=== PATIENT | female | born 1975 | race Caucasian/White ===

== ENCOUNTER → 2020-03-10 10:39 | Outpatient (CLI) | payer OTHER, SELFPAY ==
--- NOTE | ~2020-03-10 | US_ITS ---
EXAMINATION: US thyroid DATE: 03/10/2020 10:56 INDICATION: Nontoxic single thyroid nodule. Left neck lump. TECHNIQUE: Multiple ultrasound images of the thyroid were obtained. COMPARISON: None. FINDINGS: The right thyroid lobe measures 5.4 x 1.3 x 1.3 cm. The left thyroid lobe measures 5.3 x 0.9 x 1.6 c m. There is normal echotexture and echogenicity throughout the thyroid gland. No discrete nodules id entified. Normal vascular flow is present. There is no abnormal mass or lymphadenopathy in the patien t's area of concern in the left neck. IMPRESSION: 1. Normal thyroid. Reviewed, dictated and finalized at location B. IMPRESSION: 1. Normal thyroid.
== END ==
DX: E04.1 Nontoxic single thyroid nodule (principal)
CPT/HCPCS: 76536

== ENCOUNTER → 2020-07-14 10:29 | Outpatient (CLI) | payer OTHER, SELFPAY ==
--- NOTE | ~2020-07-14 | MM_ITS ---
EXAMINATION: MM scrn jevon implant BI w mar HISTORY: Screening mammogram TECHNIQUE: Craniocaudal and mediolateral oblique 3-D tomosynthesis images with implant displacement a nd synthetic 2-D images were generated. Craniocaudal and mediolateral oblique views of the breasts wi thout implant displacement were obtained using full field digital mammography. CAD analysis was submi tted and interpreted. COMPARISON: Comparison to multiple prior studies sequentially, with oldest reviewed study dated 04/17. BREAST PARENCHYMAL COMPOSITION: The breasts are extremely dense, which lowers the sensitivity of mamm ography. FINDINGS: Stable benign-appearing low-density left breast mass, lower outer quadrant of the left [address] unchanged dating back to 08/28/2017. There is no evidence of suspicious mass, calcification, or arc hitectural distortion to suggest malignancy in either breast. There has been no suspicious interval c hange. IMPRESSION: 1. No mammographic evidence of malignancy. 2. Recommend routine screening mammography in one year. BI-RADS Category 2: Benign finding(s). Reviewed, dictated and finalized at location A. FENCE [employer]OR
== END ==
PROVIDERS: Visit Provider Obstetrics & Gynecology Gynecology
DX: Z12.31 Encounter for screening mammogram for malignant neoplasm of breast (principal)
CPT/HCPCS: 77063; 77067

== ENCOUNTER → 2021-10-26 13:49 | Outpatient (CLI) | payer OTHER, SELFPAY ==
--- NOTE | ~2021-10-26 | US_ITS ---
EXAMINATION: US pelvic complete w TV DATE: 10/26/2021 14:28 INDICATION: Pelvic pain and shooting LLQ pain. TECHNIQUE: Multiple transabdominal and endovaginal sonographic images of the pelvis were obtained. COMPARISON: 05/27/16 FINDINGS: Uterus: 6.0 x 2.8 x 3.3 cm. 1 cm fibroid in anterior uterine body. Endometrial complex measures 0.4 c m. Right Ovary: 1.5 x 1.1 x 1.4 cm. Vascular flow is present. Left Ovary: 2.0 x 1.5 x 1.7 cm. Vascular flow is present. There is no free fluid in the pelvis. Increase vascularity in bilateral adnexa. IMPRESSION: 1. 1 cm fibroid. 2. Increased adnexal vascularity as can be seen with pelvic congestion syndrome. Correlate clinically for persistent dull pelvic pain lasting > 6 months, dysmenorrhea, dyspareunia, postcoital ache, and urinary symptoms. Reviewed, dictated and finalized at location K. IMPRESSION: 1. 1 cm fibroid. 2. Increased adnexal vascularity as can be seen with pelvic congestion syndrome . Correlate clinically for persistent dull pelvic pain lasting > 6 months, dysm enorrhea, dyspareunia, postcoital ache, and urinary symptoms.
--- NOTE | ~2021-10-26 | US_ITS ---
US breast BI complete DATE: 10/26/2021 14:48 INDICATION: Hair loss, fatigue, toxic symptoms; concern for possible silicone leakage from breast imp lants. No family history of breast cancer. Patient states the referring physician did not want mammogram performed due to possible damage to imp lants. TECHNIQUE: Real-time imaging of both breasts including all 4 quadrants and subareolar area COMPARISON: 07/14/2020 bilateral implant screening mammogram 02/26/2018 limited left breast ultrasound examination FINDINGS: Bilateral breast implants are noted. Right breast: There is a 2.6 x 7.9 x 4.3 mm cyst adjacent to the implant deep to the nipple. No suspicious mass or shadowing is detected. Left breast: At 1:00 7 cm from the nipple there is an approximately 2 x 6 mm lymph node with fatty hilus, with hil ar vessel. There are scattered circumscribed parallel sonolucent largely sonolucent lesions, including at 12:00 4 cm from nipple, 12:00 3 cm from nipple, 12:00 2 cm from nipple, 1:00 2 cm from nipple, 2:00 8 cm fr om nipple, 4:00 6 cm from nipple, 6:00 3.5 cm from nipple, 9:00 4 cm from the nipple. The largest of these is the 12:00 2 cm from nipple lesion which measures up to 4 x 11 mm, with through transmission posterior enhancement. No suspicious mass or shadowing is detected. IMPRESSION: BI-RADS Category 2: Benign Reviewed, dictated and finalized at Location A. Reviewed, dictated and finalized at location A. IMPRESSION: BI-RADS Category 2: Benign
== END ==
PROVIDERS: Visit Provider Nurse Practitioner
DX: Z12.31 Encounter for screening mammogram for malignant neoplasm of breast (principal); D25.9 Leiomyoma of uterus, unspecified
CPT/HCPCS: 76641; 76830; 76856

== ENCOUNTER → 2022-12-28 13:56 | Outpatient (CLI) | payer OTHER, SELFPAY ==
--- NOTE | ~2022-12-28 | US_ITS ---
EXAMINATION: US transvaginal DATE: 12/29/2022 10:39 INDICATION: Post menopausal bleeding TECHNIQUE: Multiple transabdominal and endovaginal sonographic images of the pelvis were obtained. COMPARISON: 10/26/2021 FINDINGS: Uterus: 6.4 x 3.1 x 4.3 cm. Endometrial complex measures 8 mm. Right Ovary: Right ovary not visualized. No adnexal mass. Dilated right adnexal vessels. Left Ovary: Left ovary not visualized no adnexal mass. Dilated left adnexal vessels. There is no free fluid in the pelvis. IMPRESSION: Endometrial thickening, consider endometrial sampling. Ovaries not visualized. Dilated bilateral adne xal vessels, consistent with the history of pelvic congestion. Reviewed, dictated and finalized at location K. IMPRESSION: Endometrial thickening, consider endometrial sampling. Ovaries not visualized. Dilated bilateral adnexal vessels, consistent with the history of pelvic conges tion.
== END ==
PROVIDERS: PCP Obstetrics & Gynecology Gynecology; Visit Provider Obstetrics & Gynecology Gynecology
DX: N95.0 Postmenopausal bleeding (principal)
CPT/HCPCS: 76830

== ENCOUNTER 2023-01-23 01:59 | Day surgery (SDC) | payer OTHER, SELFPAY ==
[2023-01-18 10:15] VITALS: BMI 20.7
--- NOTE | 2023-01-18 10:21 | PC.NURSE ---
Report to the Outpatient Waiting Room, entrance under the green pavilion located off [facility], at time 1115 on date 01/23/23. Planned Procedure Time: 1315. Time changes happen often and if your time is changed the preop area will call you the afternoon before. - You and your visitor will be asked to self-screen and do not enter if you have any COVID symptoms. - A mask is optional within the hospital at this time. Patients may have clear liquids (water, carbonated beverages, clear teas, apple juice) until 3 hours prior to surgery with a maximum of 20 ounces. - No food from midnight until time of surgery Take the following medications with a SIP of water the morning of surgery: NONE DO NOT STOP ANY OF YOUR OTHER PRESCRIPTION MEDICATIONS PRIOR TO SURGERY ?EXCEPT THE FOLLOWING Medications to discontinue per physician: N/A Date to take last dose: N/A Please no make-up, nail yakut, hairspray, perfume, deodorant, or body powder the day of surgery. No jewelry (including any body piercings) or valuables the day of surgery, leave them at home. Please take a shower or bath the night before, or the morning of, surgery with an antibacterial soap. Wear comfortable, loose fitting clothing. - Jewelry must be removed prior to entering the operating room. Rings and piercings that are not removed may be cut off. - The hospital will not accept responsibility for valuables. - Please leave all valuables, including medications, at home the day of surgery. If you are going home after surgery, a licensed regional truck driver must drive you home. - NO public transportation without another adult if you receive anesthesia. - We recommend that an adult stay with you for 24 hours following discharge. - We also recommend that you do not drive, make important decision, drink alcoholic beverages, or take any drugs that were not prescribed by your health care provider for at least 24 hours after your discharge time. Follow any additional instructions given to you from your surgeon. If you or anyone in your household have experienced Covid symptoms in the past week, please notify your surgeon or the nurse liaison at the phone number below for possible testing. Telephone instructions given to PT - EJ GARCIA and asked if any additional questions and then verbalized understanding. Patient advised to call surgeon office or pre surgery nurse liaison [phone] if any additional questions.
--- NOTE | 2023-01-23 10:45 | WPDHPUPDATE1 ---
History and Physical Update Update Date/Time: 01/23/23 10:45 History and Physical has been reviewed, including an updated exam of the patient. There are NO changes in the patient's condition. Risks, benefits, and alternatives have been discussed and questions answered. Patient agrees to proceed with procedure.
--- NOTE | 2023-01-23 10:45 | PM.HPGS ---
History of Present Illness History of Present Illness Consent: Risks, benefits, and alternatives have been discussed and questions answered. Patient agrees to proceed with procedure. Chief complaint: post menopausal bleeding Narrative: Faby Olivares is a 47 year old female who is 18 months postmenopausal with a 5 day bleeding episode. The patient has been seeing a functional DrWill and taking Simplex F for hormone balance and pelvic congestion . It was recommended to proceed with D&C hysteroscopy to further evaluate the endometrium. Risks of infection, bleeding, perforation, and possible pathology are discussed. Patient voices understanding and agrees to proceed. Review of Systems Review of Systems: not repeated day of surgery; patient states no changes in status [facility] Past Medical History Medical History (Updated 01/23/23 @ 10:50 by Padmini Pandey MD) Pelvic congestion syndrome Ulcerative colitis Surgical History Surgical History (Updated 01/23/23 @ 10:50 by Padmini Pandey MD) H/O breast implant with scar revision History of bilateral tubal ligation History of x2 History of hysteroscopy removal of IUD 2014 History of umbilical hernia repair Social History Social History Smoking packs per day: 0.5 Smoking cigarettes per day: 10.0 Years smoked: 20 Smoking pack-years: 10.00 Smoking status: Former smoker Tobacco type: cigarettes Smoking end date: 07/17/13 Alcohol intake: never Substance use: never Substance use type: does not use Living arrangements: with family Spiritual care concerns: No Meds Home Medications and Allergies Home Medications Medication Instructions Recorded Confirmed Type upadacitinib 15 mg tablet,extended 15 mg PO HS 01/18/23 01/18/23 History release 24 hr (Rinvoq) Allergies Allergy/AdvReac Type Severity Reaction Status Date / Time codeine Allergy Unknown vomiting Verified 01/18/23 10:15 Exam Const: General: healthy appearing and alert Orientation/consciousness: patient oriented x3 Resp: Effort & Inspection: normal respiratory effort GI: GI Palp: Yes Soft to palpation, No Tenderness to palpation present (GI) and No Palpable mass present : External Female Exam: normal external appearance Speculum Exam - Vagina: normal appearance of the vagina and normal vaginal discharge Speculum Exam - Cervix: normal appearance of the cervix Bimanual exam- vagina & uterus: uterine size normal and consistency normal Bimanual Exam- Adnexa, other: normal adnexae and No adnexal tenderness Neuro: General: patient oriented x3 Assessment and Plan Assessment and plan (1) Post-menopausal bleeding: Code(s): N95.0 - Postmenopausal bleeding Status: Acute Assessment and Plan: plan to proceed with D&C hysteroscopy
[2023-01-23] MEDS: LACTATED RINGERS 1,000 ML 30 ML IV CONT (12:00)
[2023-01-23] MEDS: ACETAMINOPHEN 500 MG TABLET 1000 MG PO (12:00)
[2023-01-23 12:03] VITALS: BP 105/82; PULSE 80; RESP 14; TEMP 36.4; O2SAT 100
--- NOTE | 2023-01-23 12:22 | WPDANESEPPF ---
Anes - Initial Pre Proc Eval Procedure: Operation Date: 01/23/23 13:15 Proposed Procedures p Hysteroscopy, Dilation and Curettage - Padmini Pandey MD Date/Time: 01/23/23 12:22 Surgeon: Padmini Pandey MD Pre Op Diagnosis: post menopausal bleeding Patient Data Age: 47 Gender: F Height: 1.75 m Weight: 61.2 kg Last Vital Signs Temp 36.4 C L 01/23/23 12:03 Pulse 80 01/23/23 12:03 Resp 14 01/23/23 12:03 BP 105/82 01/23/23 12:03 Pulse Ox 100 01/23/23 12:03 O2 Del Method Room Air 01/23/23 12:03 Allergies Allergy/AdvReac Type Severity Reaction Status Date / Time codeine Allergy Unknown vomiting Verified 01/23/23 12:07 Home Medications Medication Instructions Recorded Confirmed Type upadacitinib 15 mg tablet,extended 15 mg PO HS 01/18/23 01/18/23 History release 24 hr (Rinvoq) Patient hx anesthesia problems: none Family hx anesthesia problems: none Results Review: All pre-operative results and documents have been reviewed as part of the pre-operative evaluation. [facility] Past Medical History Medical History Pelvic congestion syndrome Ulcerative colitis Surgical History Surgical History H/O breast implant with scar revision History of bilateral tubal ligation History of x2 History of hysteroscopy removal of IUD 2014 History of umbilical hernia repair Social History Social History Smoking packs per day: 0.5 Smoking cigarettes per day: 10.0 Years smoked: 20 Smoking pack-years: 10.00 Smoking status: Former smoker Tobacco type: cigarettes Smoking end date: 07/17/13 Alcohol intake: never Substance use: never Substance use type: does not use Living arrangements: with family Spiritual care concerns: No Anes - Eval Final PreProcedure Day of Procedure 01/23/23 12:22 Patient weight: normal Heart: regular rate and rhythm Lungs: clear to auscultation Airway: Mallampati scale class II Neurological: alert and oriented Last oral intake: >/= 8 hours ASA classification: II Emergent: no Anesthetic plan: proceed Anesthesia type and monitoring: general GIVS and standard monitoring Results Review: All pre-operative results and documents have been reviewed as part of the pre-operative evaluation. Informed Consent: The patient's anesthetic plan and its attendant risks and benefits were discussed with the patient/family/POA. Questions were solicited and answers provided to the satisfaction of the patient/family/POA.
--- NOTE | 2023-01-23 13:29 | W.PM.PROC2 ---
Procedure Note - Detailed Date of Procedure 01/23/23 Pre-op Diagnosis post menopausal bleeding Post-op Diagnosis Same Procedure Performed D&C hysteroscopy Surgeon Padmini Pandey MD Anesthesia MAC Findings uterus sounds to 7cm and is grossly atrophic Description of Procedure The patient is taken to operating room and placed under anesthesia in dorsal lithotomy position. She was prepped draped in the usual sterile fashion. [place] speculum was placed in vagina and the cervix grasped on the anterior lip with a tenaculum. Uterus sounds to 7cm. The internal os is slightly stenotic and the os Finders were used to allow passage of hysteroscope. The hysteroscope was placed and no abnormalities noted it is removed. The dilators are used and a 0 sharp curette is used for sharp curettage. Minimal material was obtained consistent with the visual appearance. All instruments are removed. Sponge, needle, and instrument counts are correct per the OR staff. Patient is awakened from anesthesia and taken to recovery in stable condition. Estimated Blood Loss 5 Drains No Packing No Pathology Yes ( Endometrial curettings) Complications No immediate complications Condition Stable Disposition PACU
[2023-01-23 13:30] VITALS: BP 106/72; PULSE 73; RESP 16; O2SAT 97
[2023-01-23 14:00] VITALS: BP 119/71; PULSE 68; RESP 16
[2023-01-23 14:30] VITALS: BP 118/69; PULSE 63; RESP 15
== END 2023-01-23 14:50 | disposition home or self-care (01) ==
PROVIDERS: PCP Nurse Practitioner; Visit Provider Obstetrics & Gynecology Gynecology
PROC: 0U5B8ZZ Destruction of Endometrium, Via Natural or Artificial Opening Endoscopic (ICD-10-PCS; CPT 58563; principal; 2023-01-23 13:15)
DX: N95.0 Postmenopausal bleeding (principal); N85.8 Other specified noninflammatory disorders of uterus; N94.89 Other specified conditions associated with female genital organs and menstrual cycle; Z87.891 Personal history of nicotine dependence
CPT/HCPCS: 58558; 88305; A9270; J2250; J2704; J3010; J7120

== ENCOUNTER → 2023-04-03 13:51 | Outpatient (CLI) | payer OTHER, SELFPAY ==
--- NOTE | ~2023-04-03 | MM_ITS ---
EXAMINATION: MM scrn jevon implant BI w mar HISTORY: Screening mammogram TECHNIQUE: Craniocaudal and mediolateral oblique 3-D tomosynthesis images with implant displacement a nd synthetic 2-D images were generated. Craniocaudal and mediolateral oblique views of the breasts wi thout implant displacement were obtained using full field digital mammography. CAD analysis was submi tted and interpreted. COMPARISON: Comparison to multiple prior studies sequentially, with oldest reviewed study dated 04/17. BREAST PARENCHYMAL COMPOSITION: The breasts are heterogeneously dense, which may obscure small masses FINDINGS: There is no evidence of suspicious mass, calcification, or architectural distortion to sugg est malignancy in either breast. There has been no suspicious interval change. IMPRESSION: 1. No mammographic evidence of malignancy. 2. Recommend routine screening mammography in one year. BI-RADS Category 1: Negative Reviewed, dictated and finalized at location A.
== END ==
PROVIDERS: PCP Nurse Practitioner; Visit Provider Nurse Practitioner
DX: Z12.31 Encounter for screening mammogram for malignant neoplasm of breast (principal)
CPT/HCPCS: 77063; 77067